=== PATIENT | female | born 1960 | race Caucasian/White ===

== ENCOUNTER 2021-03-23 21:36 | Emergency (ER) | payer BC, MEDICARE ==
[2021-03-23] MEDS ORDERED: Aspirin 81 MG Tab.Chew PO ONE (21:44)
[2021-03-23] MEDS ORDERED: Aspirin 81 MG Tab.Chew ONE (21:45)
[2021-03-23] MEDS ORDERED: Diazepam 5 MG Tab PO ONE (21:45)
[2021-03-23] MEDS ORDERED: Ketorolac 30 MG/ML SDV IVPUSH ONE (21:45)
[2021-03-23] MEDS ORDERED: Sodium Chloride 0.9% 10 ML Syringe FLUSH PRN (21:45)
--- NOTE | 2021-03-23 21:52 | EDM.PDOC ---
ED HPI GENERAL MEDICAL PROBLEM - General Chief Complaint: Chest Pain Stated Complaint: CHEST PAIN Time Seen by Provider: 03/23/21 21:39 Source of Information: Reports: Patient, EMS - History of Present Illness INITIAL COMMENTS - FREE TEXT/NARRATIVE: Kira is a 60 y/o female who is brought to the ER by EMS with midsternal chest pain that she reports started after she took a bath tonight. She rates the pain 10/10 and radiating to the back "all over". She does seem to have more pain with movement and palpation. Denies any previous cardiac hx. Has not taken any meds for pain. Does report getting dizzy and nauseated with the pain. CHEST Pain Score (Numeric/FACES): 10 - Related Data Allergies Allergy/AdvReac Type Severity Reaction Status Date / Time cefpodoxime [From Vantin] Allergy Other Verified 03/23/21 22:08 Home Meds: Home Meds . [No Known Home Meds] 03/23/21 [History] Review of Systems - Review of Systems Review Of Systems: See Below Constitutional: Reports: No Symptoms Eyes: Reports: No Symptoms Ears: Reports: No Symptoms Nose: Reports: No Symptoms Mouth/Throat: Reports: No Symptoms Respiratory: Reports: No Symptoms Cardiovascular: Reports: Chest Pain GI/Abdominal: Reports: Nausea Genitourinary: Reports: No Symptoms Musculoskeletal: Reports: Back Pain Skin: Reports: No Symptoms Neurological: Reports: Dizziness Psychiatric: Reports: No Symptoms ED EXAM, GENERAL - Physical Exam Exam: See Below General Appearance: Alert, WD/WN, Other (Adult female, appears to be uncomfortable and in pain with any movment) Ears: Hearing Grossly Normal Nose: Normal Inspection Throat/Mouth: Normal Inspection, Normal Voice Head: Atraumatic, Normocephalic Neck: Normal Inspection Respiratory/Chest: No Respiratory Distress, Lungs Clear, Other (+tender with palpation) Cardiovascular: Normal Peripheral Pulses, Regular Rate, Rhythm, No Murmur GI/Abdominal: Normal Bowel Sounds, Soft, Non-Tender (Female) Exam: Deferred Rectal (Female) Exam: Deferred Extremities: Normal Inspection, No Pedal Edema, Normal Capillary Refill Neurological: Alert, Oriented, CN II-XII Intact Psychiatric: Flat Affect Skin Exam: Warm, Dry, Intact, Normal Color Lymphatic: No Adenopathy #1 Interpretation EKG Date: 03/23/21 Time: 21:39 Rhythm: NSR Rate (Beats/Min): 70 [place]: Normal P-Wave: Present QRS: Normal ST-T: Normal QT: Normal EKG Interpretation Comments: NSR Course - Vital Signs Text/Narrative:: The patient was seen by the MACHINIST OUTSIDE. Labs and EKG ordered. She was given ASA 324mg po since she is r/o ACS, but also given Toradol 30mg IVP and Valium 10mg po for the muscle spasms/pain. 2250 Resting now, feeling a bit better. Labs reviewed. Note WBC=13.9, Neuts=97.7%; CMP K=3.4, Qgiqjux=492 Total Bili=2.5, BTF=925, GOT=945; Tr oponin=0.00; UA SG=>=1.030, Ketones >=160, Bili=moderate. Abdominal exam negative, but will order CT Abd/Pelvis W to rule out causes of elevated LFTs and elevated WBC, cannot exclude Gallbladder Disease; LR 1 liter ordered. Pain better at this time. [address] as machine went down. Discussed option of transferring to [facility] or returning in the AM for a Gallbladder US. Patie nt reports pain better at this time, but does not want to go to [facility]. Will send home with pain meds and antiemetics for now. Suspect gallbladder disease but need imaging. Advised to return immediately to ER if unable to tolerate pain. Reviewed plan with patient and her son. GB US ordered for AM. Patient was given discharge instructions and left the ER in stable condition. Last Recorded V/S: Last Vital Signs Temp 36.3 C 03/23/21 21:40 Pulse 69 03/23/21 21:58 Resp 20 03/23/21 21:58 BP 129/67 03/23/21 21:58 Pulse Ox 95 03/23/21 21:58 - Orders/Labs/Meds Orders: Active Orders 24 hr Category Date Time Status EKG Documentation Completion [RC] STAT Care 03/23/21 21:45 Active Abdomen Pelvis w Cont [CT] Stat Exams 03/24/21 00:18 Ordered Sodium Chloride 0.9% [Saline Flush] Med 03/23/21 21:45 Active 10 ml FLUSH ASDIRECTED PRN Saline Lock Insert [OM.PC] Stat Oth 03/23/21 21:45 Ordered Medication Orders Sodium Chloride (Sodium Chloride 0.9% 10 Ml Syringe) 10 ml FLUSH ASDIRECTED PRN PRN Reason: Keep Vein Open Last Admin: 03/23/21 21:50 Dose: 10 ml Documented by: NICKO Labs: Laboratory Tests 03/23/21 03/23/21 03/23/21 Range/Units 21:55 21:55 21:55 WBC 13.9 H (4.0-10.2) K/uL RBC 5.36 H (3.77-5.09) M/uL Hgb 13.8 (11.7-15.5) g/dL Hct 43.6 (34.0-46.0) % MCV 81.3 L (84.0-98.0) fL MCH 25.7 L (28.2-33.3) pg MCHC 31.7 (31.7-36.0) g/dL RDW 14.9 H (11.2-14.1) % Plt Count 277 (150-350) K/uL Neut % (Auto) 97.7 H (45.0-80.0) % Lymph % (Auto) 1.7 L (10.0-50.0) % [place] % (Auto) 0.4 L (2.0-14.0) % Eos % (Auto) 0.1 (0.0-5.0) % Baso % (Auto) 0.1 (0.0-2.0) % Neut # (Auto) 13.62 H (1.40-7.00) K/uL Lymph # (Auto) 0.23 L (0.50-3.50) K/uL [place] # (Auto) 0.06 (0.00-1.00) K/uL Eos # (Auto) 0.01 (0.00-0.50) K/uL Baso # (Auto) 0.01 (0.00-0.20) K/uL Sodium 142 (136-145) mmol/L Potassium 3.4 L (3.5-5.1) mmol/L Chloride 104 (98-107) mmol/L Carbon Dioxide 23.2 (21.0-32.0) mmol/L BUN 19 H (7-18) mg/dL Creatinine 0.75 (0.51-1.17) mg/dL Est Cr Clr Drug Dosing 79.51 mL/min Estimated GFR (MDRD) > 60 mL/min Glucose 191 H (70-99) mg/dL Calcium 8.4 L (8.5-10.1) mg/dL Total Bilirubin 2.5 H (0.2-1.0) mg/dL AST 168 H (15-37) U/L ALT 109 H (12-78) U/L Alkaline Phosphatase 157 H (46-116) IU/L Troponin I 0.000 (0.000-0.056) ng/mL C-Reactive Protein 1.5 H (<=0.9) mg/dL Total Protein 7.9 (6.4-8.2) g/dL Albumin 3.7 (3.4-5.0) g/dL Specimen Type Urine Color Urine Appearance Urine pH (5.0-9.0) Ur Specific [place] (1.005-1.030) Urine Protein (NEGATIVE) mg/dL Urine Glucose (UA) (NEGATIVE) mg/dL Urine Ketones (NEGATIVE) mg/dL Urine Occult Blood (NEGATIVE) Urine Nitrite (NEGATIVE) Urine Bilirubin (NEGATIVE) Urine Urobilinogen (0.2-1.0) E.U./dL Ur Leukocyte Esterase (NEGATIVE) Urine RBC Urine WBC Urinalysis Comment 03/23/21 Range/Units 22:19 WBC (4.0-10.2) K/uL RBC (3.77-5.09) M/uL Hgb (11.7-15.5) g/dL Hct (34.0-46.0) % MCV (84.0-98.0) fL MCH (28.2-33.3) pg MCHC (31.7-36.0) g/dL RDW (11.2-14.1) % Plt Count (150-350) K/uL Neut % (Auto) (45.0-80.0) % Lymph % (Auto) (10.0-50.0) % [place] % (Auto) (2.0-14.0) % Eos % (Auto) (0.0-5.0) % Baso % (Auto) (0.0-2.0) % Neut # (Auto) (1.40-7.00) K/uL Lymph # (Auto) (0.50-3.50) K/uL [place] # (Auto) (0.00-1.00) K/uL Eos # (Auto) (0.00-0.50) K/uL Baso # (Auto) (0.00-0.20) K/uL Sodium (136-145) mmol/L Potassium (3.5-5.1) mmol/L Chloride (98-107) mmol/L Carbon Dioxide (21.0-32.0) mmol/L BUN (7-18) mg/dL Creatinine (0.51-1.17) mg/dL Est Cr Clr Drug Dosing mL/min Estimated GFR (MDRD) mL/min Glucose (70-99) mg/dL Calcium (8.5-10.1) mg/dL Total Bilirubin (0.2-1.0) mg/dL AST (15-37) U/L ALT (12-78) U/L Alkaline Phosphatase (46-116) IU/L Troponin I (0.000-0.056) ng/mL C-Reactive Protein (<=0.9) mg/dL Total Protein (6.4-8.2) g/dL Albumin (3.4-5.0) g/dL Specimen Type Urincc Urine Color Dark yellow Urine Appearance Slightly cloudy Urine pH 5.5 (5.0-9.0) Ur Specific [place] >= 1.030 (1.005-1.030) Urine Protein 30 H (NEGATIVE) mg/dL Urine Glucose (UA) Negative (NEGATIVE) mg/dL Urine Ketones >=160 H (NEGATIVE) mg/dL Urine Occult Blood Negative (NEGATIVE) Urine Nitrite Negative (NEGATIVE) Urine Bilirubin Moderate H (NEGATIVE) Urine Urobilinogen >=8.0 H (0.2-1.0) E.U./dL Ur Leukocyte Esterase Negative (NEGATIVE) Urine RBC Not Reportable Urine WBC Not Reportable Urinalysis Comment See note Meds: Medications Generic Name Dose Route Start Last Admin Trade Name Freq PRN Reason Stop Dose Admin Sodium Chloride 10 ml 03/23/21 21:45 03/23/21 21:50 Sodium Chloride 0.9% 10 Ml Syringe FLUSH 10 ml ASDIRECTED PRN Administration Keep Vein Open Discontinued Medications Generic Name Dose Route Start Last Admin Trade Name Freq PRN Reason Stop Dose Admin Aspirin 324 mg 03/23/21 21:44 03/23/21 21:45 Aspirin 81 Mg Tab.Chew PO 03/23/21 21:45 324 mg ONETIME ONE Administration Aspirin Confirm 03/23/21 21:45 03/23/21 21:45 Aspirin 81 Mg Tab.Chew Administered 03/23/21 21:46 Not Given Dose 324 mg .ROUTE .STK-MED ONE Diazepam 10 mg 03/23/21 21:45 03/23/21 21:48 Diazepam 5 Mg Tab PO 03/23/21 21:46 10 mg ONETIME ONE Administration Lactated Ringer's 1,000 mls @ 999 mls/hr 03/23/21 22:51 03/23/21 22:54 Ringers, Lactated IV 03/23/21 23:51 999 mls/hr .BOLUS ONE Administration Iopamidol 100 ml 03/23/21 23:08 Iopamidol 612 Mg/Ml 100 Ml Bottle IVPUSH 03/23/21 23:09 ONETIME STA Ketorolac Tromethamine 30 mg 03/23/21 21:45 03/23/21 21:48 Ketorolac 30 Mg/Ml Sdv IVPUSH 03/23/21 21:46 30 mg ONETIME ONE Administration Departure - Departure Time of Disposition: 00:31 Disposition: Home, Self-Care 01 Condition: Good Clinical Impression: Epigastric pain, Elevated LFTs Elevated white blood cell count Qualifiers: Leukocytosis type: other Qualified Code(s): D72.828 - Other elevated white blood cell count - Discharge Information *PRESCRIPTION DRUG MONITORING PROGRAM REVIEWED*: No *COPY OF PRESCRIPTION DRUG MONITORING REPORT IN PATIENT LIOR: No Instructions: Abdominal Pain, Adult, [id number] Referrals: PCP,None [Primary Care Provider] - Forms: ED Department Discharge Sepsis Event Note (ED) - Evaluation Sepsis Screening Result: No Definite Risk - Focused Exam Vital Signs: Vital Signs Temp Pulse Resp BP Pulse Ox 03/23/21 21:58 69 20 129/67 95 03/23/21 21:40 36.3 C 72 16 133/73 95 03/23/21 21:36 20 - My Orders Last 24 Hours: My Active Orders 03/23/21 21:45 EKG Documentation Completion [RC] STAT Sodium Chloride 0.9% [Saline Flush] 10 ml FLUSH ASDIRECTED PRN Saline Lock Insert [OM.PC] Stat 03/24/21 00:18 Abdomen Pelvis w Cont [CT] Stat - Assessment/Plan Last 24 Hours: My Active Orders 03/23/21 21:45 EKG Documentation Completion [RC] STAT Sodium Chloride 0.9% [Saline Flush] 10 ml FLUSH ASDIRECTED PRN Saline Lock Insert [OM.PC] Stat 03/24/21 00:18 Abdomen Pelvis w Cont [CT] Stat Assessment:: 1)Epigastric Pain 2)Elevated WBC 3)Elevated LFTs Plan: -Tramadol 50mg 1-2 tablets every 8 hours as needed for pain #10(ER) -Promethazine 25mg oral every 6 hours as needed for nausea/relaxation #10 (ER) -You may have small amounts of liquids, but no food. Do not eat until after the ultrasound. -Ultrasound of your gallbladder ordered for tomorrow. They will call you in the AM with a time. -If your symptoms are worse, return immediately to the ER.
[2021-03-23 22:20] LABS: CHLORIDE,CL 104 mmol/L (98-107); SODIUM,NA 142 mmol/L (136-145)
[2021-03-23] MEDS ORDERED: Lactated Ringers 1,000 ML IV ONE (22:51)
[2021-03-23] MEDS ORDERED: Iopamidol 612 MG/ML 100 ML Bottle IVPUSH STA (23:08)
== END 2021-03-24 00:50 | disposition home or self-care (01) ==
LOC: LL.ED 21:36
DX: R10.13 Epigastric pain (principal); D72.828 Other elevated white blood cell count; R79.89 Other specified abnormal findings of blood chemistry; Z88.1 Allergy status to other antibiotic agents
CPT/HCPCS: 36415; 80053; 81001; 81003; 84484; 85025; 86140; 93010; 96374; 99284; 99285-25; A9270-GY; J1885; J7120

== ENCOUNTER 2021-04-08 20:33 | Emergency (ER) | payer MEDICARE ==
[2021-04-08] MEDS ORDERED: Aspirin 81 MG Tab.Chew PO ONE (21:01)
[2021-04-08] MEDS ORDERED: Nitroglycerin 0.4 MG Tab.SL SL ONE (21:11)
--- NOTE | 2021-04-08 21:13 | PCM.EKG ---
#1 Interpretation EKG Date: 04/08/21 Time: 21:09 Rhythm: NSR Rate (Beats/Min): 74 [place]: Normal P-Wave: Present QRS: Normal ST-T: Normal QT: Normal Comparison: No Change
--- NOTE | 2021-04-08 21:19 | EDM.PDOC ---
ED HPI GENERAL MEDICAL PROBLEM - General Chief Complaint: General Stated Complaint: Chest pain abd pain Time Seen by Provider: 04/08/21 21:01 Source of Information: Reports: Patient History Limitations: Reports: No Limitations - History of Present Illness INITIAL COMMENTS - FREE TEXT/NARRATIVE: Patient comes emergency department today from home with complaints of abdominal pain and chest pain. This patient since about 5 PM tonight has had constant midsternal pressure on her chest. She is short of breath. Her pressure does not get worse or better with movement cough. She also complains of right upper quadrant abdominal pain nausea without vomiting. His pain in her sternum goes into her back. No weakness dizziness lightheadedness. No syncope. No fever or chills. No hematuria dysuria urinary frequency. No black or tarry stools. Treatments DOCTOR OF DENTAL SURGERY: Reports: Other Medication(s) Back Pain Score (Numeric/FACES): 6 - Related Data Allergies Allergy/AdvReac Type Severity Reaction Status Date / Time cefpodoxime [From Vantin] Allergy Other Verified 04/08/21 20:36 Home Meds: Home Meds . [No Known Home Meds] 03/23/21 [History] Social & Family History - Tobacco Use Tobacco Use Status *Q: Never Tobacco User Second Hand Smoke Exposure: No - Caffeine Use Caffeine Use: Reports: Coffee, Soda - Recreational Drug Use Recreational Drug Use: No ED ROS GENERAL - Review of Systems Review Of Systems: Comprehensive ROS is negative, except as noted in HPI. ED EXAM, GENERAL - Physical Exam Exam: See Below Exam Limited By: No Limitations General Appearance: Alert, WD/WN, Mild Distress Eye Exam: Bilateral Eye: EOMI, PERRL Ears: Normal External Exam Nose: Normal Inspection Throat/Mouth: Normal Inspection Head: Atraumatic, Normocephalic Neck: Normal Inspection, Supple, Non-Tender Respiratory/Chest: No Respiratory Distress, Lungs Clear, Normal Breath Sounds, No Accessory Muscle Use, Chest Non-Tender Cardiovascular: Normal Peripheral Pulses, Regular Rate, Rhythm, No Murmur Peripheral Pulses: 2+: Radial (L), Radial (R), Posterior Tibial (L), Posterior Tibial (R), Dorsalis Pedis (L), Dorsalis Pedis (R) GI/Abdominal: Normal Bowel Sounds, Soft, No Distention, Tender (Right upper quadrant positive Negron sign.). No: Guarding, Rigid, Rebound (Female) Exam: Deferred Rectal (Female) Exam: Deferred Back Exam: Normal Inspection, Full Range of Motion Extremities: Normal Inspection, Normal Range of Motion, Normal Capillary Refill Neurological: Alert, Oriented, CN II-XII Intact, No Motor/Sensory Deficits Psychiatric: Flat Affect Skin Exam: Intact, No Rash, Cool, Diaphoretic, Pallor Course - Vital Signs Last Recorded V/S: Last Vital Signs Temp 97.5 F 04/09/21 00:15 Pulse 89 04/08/21 22:28 Resp 14 04/09/21 00:55 BP 144/75 H 04/09/21 00:55 Pulse Ox 97 04/09/21 00:55 - Orders/Labs/Meds Orders: Active Orders 24 hr Category Date Time Status Abdomen Pelvis w Cont [CT] Stat Exams 04/08/21 21:49 Taken Chest 1V Frontal [CR] Stat Exams 04/08/21 21:00 Taken CULTURE BLOOD [BC] Stat Lab 04/08/21 22:21 Received CULTURE BLOOD [BC] Stat Lab 04/08/21 22:28 Received CULTURE URINE [RM] Stat Lab 04/08/21 23:00 Results Blood Culture x2 Reflex Set [OM.PC] Stat Oth 04/08/21 22:11 Ordered Peripheral IV Insertion Adult [OM.PC] Stat Oth 04/08/21 21:00 Ordered Labs: Laboratory Tests 04/08/21 04/08/21 04/08/21 Range/Units 21:16 21:16 21:16 WBC 16.2 H (4.0-10.2) K/uL RBC 4.98 (3.77-5.09) M/uL Hgb 12.7 (11.7-15.5) g/dL Hct 41.2 (34.0-46.0) % MCV 82.7 L (84.0-98.0) fL MCH 25.5 L (28.2-33.3) pg MCHC 30.8 L (31.7-36.0) g/dL RDW 15.8 H (11.2-14.1) % Plt Count 370 H D (150-350) K/uL Neut % (Auto) 94.3 H (45.0-80.0) % Lymph % (Auto) 2.7 L (10.0-50.0) % [place] % (Auto) 2.7 (2.0-14.0) % Eos % (Auto) 0.1 (0.0-5.0) % Baso % (Auto) 0.2 (0.0-2.0) % Neut # (Auto) 15.29 H (1.40-7.00) K/uL Lymph # (Auto) 0.44 L (0.50-3.50) K/uL [place] # (Auto) 0.43 (0.00-1.00) K/uL Eos # (Auto) 0.01 (0.00-0.50) K/uL Baso # (Auto) 0.03 (0.00-0.20) K/uL Sodium 141 (136-145) mmol/L Potassium 4.1 (3.5-5.1) mmol/L Chloride 105 (98-107) mmol/L Carbon Dioxide 22.8 (21.0-32.0) mmol/L BUN 16 (7-18) mg/dL Creatinine 0.74 (0.51-1.17) mg/dL Est Cr Clr Drug Dosing 80.58 mL/min Estimated GFR (MDRD) > 60 mL/min Glucose 136 H (70-99) mg/dL Lactic Acid 1.0 (0.4-2.0) mmol/L Calcium 9.0 (8.5-10.1) mg/dL Total Bilirubin 2.2 H (0.2-1.0) mg/dL AST 116 H (15-37) U/L ALT 75 (12-78) U/L Alkaline Phosphatase 262 H (46-116) IU/L Ammonia (11-32) umol/L Lactate Dehydrogenase (81-234) U/L Troponin I 0.000 (0.000-0.056) ng/mL C-Reactive Protein 1.7 H (<=0.9) mg/dL Total Protein 8.1 (6.4-8.2) g/dL Albumin 3.3 L (3.4-5.0) g/dL Lipase > 1500 H (73-393) U/L Specimen Type Urine Color Urine Appearance Urine pH (5.0-9.0) Ur Specific [place] (1.005-1.030) Urine Protein (NEGATIVE) mg/dL Urine Glucose (UA) (NEGATIVE) mg/dL Urine Ketones (NEGATIVE) mg/dL Urine Occult Blood (NEGATIVE) Urine Nitrite (NEGATIVE) Urine Bilirubin (NEGATIVE) Urine Urobilinogen (0.2-1.0) E.U./dL Ur Leukocyte Esterase (NEGATIVE) Urine RBC /HPF Urine WBC /HPF Ur Epithelial Cells /LPF Amorphous Sediment (0/HPF) /HPF Urine Bacteria (NONE TO FEW) /HPF Urine Mucus (NEGATIVE) /LPF SARS-CoV-2 Ag (Rapid) (NEGATIVE) 04/08/21 04/08/21 04/08/21 Range/Units 21:16 21:16 23:00 WBC (4.0-10.2) K/uL RBC (3.77-5.09) M/uL Hgb (11.7-15.5) g/dL Hct (34.0-46.0) % MCV (84.0-98.0) fL MCH (28.2-33.3) pg MCHC (31.7-36.0) g/dL RDW (11.2-14.1) % Plt Count (150-350) K/uL Neut % (Auto) (45.0-80.0) % Lymph % (Auto) (10.0-50.0) % [place] % (Auto) (2.0-14.0) % Eos % (Auto) (0.0-5.0) % Baso % (Auto) (0.0-2.0) % Neut # (Auto) (1.40-7.00) K/uL Lymph # (Auto) (0.50-3.50) K/uL [place] # (Auto) (0.00-1.00) K/uL Eos # (Auto) (0.00-0.50) K/uL Baso # (Auto) (0.00-0.20) K/uL Sodium (136-145) mmol/L Potassium (3.5-5.1) mmol/L Chloride (98-107) mmol/L Carbon Dioxide (21.0-32.0) mmol/L BUN (7-18) mg/dL Creatinine (0.51-1.17) mg/dL Est Cr Clr Drug Dosing mL/min Estimated GFR (MDRD) mL/min Glucose (70-99) mg/dL Lactic Acid (0.4-2.0) mmol/L Calcium (8.5-10.1) mg/dL Total Bilirubin (0.2-1.0) mg/dL AST (15-37) U/L ALT (12-78) U/L Alkaline Phosphatase (46-116) IU/L Ammonia < 10 L (11-32) umol/L Lactate Dehydrogenase 339 H (81-234) U/L Troponin I (0.000-0.056) ng/mL C-Reactive Protein (<=0.9) mg/dL Total Protein (6.4-8.2) g/dL Albumin (3.4-5.0) g/dL Lipase (73-393) U/L Specimen Type Urinvoid Urine Color Dark yellow Urine Appearance Cloudy Urine pH 5.5 (5.0-9.0) Ur Specific [place] >= 1.030 (1.005-1.030) Urine Protein 100 H (NEGATIVE) mg/dL Urine Glucose (UA) 100 H (NEGATIVE) mg/dL Urine Ketones 40 H (NEGATIVE) mg/dL Urine Occult Blood Negative (NEGATIVE) Urine Nitrite Negative (NEGATIVE) Urine Bilirubin Large H (NEGATIVE) Urine Urobilinogen 4.0 H (0.2-1.0) E.U./dL Ur Leukocyte Esterase Trace H (NEGATIVE) Urine RBC 0-5 /HPF Urine WBC 10-20 H /HPF Ur Epithelial Cells Few /LPF Amorphous Sediment Moderate H (0/HPF) /HPF Urine Bacteria Moderate H (NONE TO FEW) /HPF Urine Mucus Moderate H (NEGATIVE) /LPF SARS-CoV-2 Ag (Rapid) (NEGATIVE) 04/09/21 Range/Units 00:05 WBC (4.0-10.2) K/uL RBC (3.77-5.09) M/uL Hgb (11.7-15.5) g/dL Hct (34.0-46.0) % MCV (84.0-98.0) fL MCH (28.2-33.3) pg MCHC (31.7-36.0) g/dL RDW (11.2-14.1) % Plt Count (150-350) K/uL Neut % (Auto) (45.0-80.0) % Lymph % (Auto) (10.0-50.0) % [place] % (Auto) (2.0-14.0) % Eos % (Auto) (0.0-5.0) % Baso % (Auto) (0.0-2.0) % Neut # (Auto) (1.40-7.00) K/uL Lymph # (Auto) (0.50-3.50) K/uL [place] # (Auto) (0.00-1.00) K/uL Eos # (Auto) (0.00-0.50) K/uL Baso # (Auto) (0.00-0.20) K/uL Sodium (136-145) mmol/L Potassium (3.5-5.1) mmol/L Chloride (98-107) mmol/L Carbon Dioxide (21.0-32.0) mmol/L BUN (7-18) mg/dL Creatinine (0.51-1.17) mg/dL Est Cr Clr Drug Dosing mL/min Estimated GFR (MDRD) mL/min Glucose (70-99) mg/dL Lactic Acid (0.4-2.0) mmol/L Calcium (8.5-10.1) mg/dL Total Bilirubin (0.2-1.0) mg/dL AST (15-37) U/L ALT (12-78) U/L Alkaline Phosphatase (46-116) IU/L Ammonia (11-32) umol/L Lactate Dehydrogenase (81-234) U/L Troponin I (0.000-0.056) ng/mL C-Reactive Protein (<=0.9) mg/dL Total Protein (6.4-8.2) g/dL Albumin (3.4-5.0) g/dL Lipase (73-393) U/L Specimen Type Urine Color Urine Appearance Urine pH (5.0-9.0) Ur Specific [place] (1.005-1.030) Urine Protein (NEGATIVE) mg/dL Urine Glucose (UA) (NEGATIVE) mg/dL Urine Ketones (NEGATIVE) mg/dL Urine Occult Blood (NEGATIVE) Urine Nitrite (NEGATIVE) Urine Bilirubin (NEGATIVE) Urine Urobilinogen (0.2-1.0) E.U./dL Ur Leukocyte Esterase (NEGATIVE) Urine RBC /HPF Urine WBC /HPF Ur Epithelial Cells /LPF Amorphous Sediment (0/HPF) /HPF Urine Bacteria (NONE TO FEW) /HPF Urine Mucus (NEGATIVE) /LPF SARS-CoV-2 Ag (Rapid) Negative (NEGATIVE) Meds: Medications Discontinued Medications Generic Name Dose Route Start Last Admin Trade Name Antonio PRN Reason Stop Dose Admin Aspirin 324 mg 04/08/21 21:01 04/08/21 21:11 Aspirin 81 Mg Tab.Chew PO 04/08/21 21:02 324 mg ONETIME ONE Administration Diphenhydramine HCl 25 mg 04/08/21 21:25 04/08/21 21:33 Diphenhydramine 50 Mg/Ml Sdv IVPUSH 04/08/21 21:26 25 mg ONETIME ONE Administration Hydromorphone HCl 0.5 mg 04/08/21 21:25 04/08/21 21:33 Hydromorphone 0.5 Mg/0.5 Ml Syringe IV 04/08/21 21:26 0.5 mg ONETIME ONE Administration Hydromorphone HCl 0.5 mg 04/08/21 22:03 04/08/21 22:07 Hydromorphone 0.5 Mg/0.5 Ml Syringe IV 04/08/21 22:04 0.5 mg ONETIME ONE Administration Hydromorphone HCl 0.5 mg 04/09/21 00:08 04/09/21 00:15 Hydromorphone 0.5 Mg/0.5 Ml Syringe IV 04/09/21 00:09 0.5 mg ONETIME ONE Administration Lactated Ringer's 1,000 mls @ 1,000 mls/hr 04/08/21 21:25 04/08/21 21:36 Ringers, Lactated IV 04/08/21 22:24 1,000 mls/hr .BOLUS ONE Administration Lactated Ringer's 1,000 mls @ 500 mls/hr 04/08/21 22:15 04/08/21 22:34 Ringers, Lactated IV 500 mls/hr ASDIRECTED LARA Administration Iopamidol 100 ml 04/08/21 22:28 04/08/21 22:55 Iopamidol 612 Mg/Ml 100 Ml Bottle IVPUSH 04/08/21 22:29 100 ml ONETIME ONE Administration Nitroglycerin 0.4 mg 04/08/21 21:11 04/08/21 21:13 Nitroglycerin 0.4 Mg Tab.Sl SL 04/08/21 21:12 0.4 mg ONETIME ONE Administration Ondansetron HCl 4 mg 04/08/21 21:25 04/08/21 21:33 Ondansetron 4 Mg/2 Ml Sdv IV 04/08/21 21:26 4 mg ONETIME ONE Administration Sodium Chloride 10 ml 04/08/21 21:01 04/08/21 22:09 Sodium Chloride 0.9% 10 Ml Syringe FLUSH 10 ml ASDIRECTED PRN Administration Keep Vein Open - Radiology Interpretation Free Text/Narrative:: Chest x-ray per radiology shows no evidence of pneumothorax. No bony abnormality. Left hemidiaphragm is indistinct suggesting left basilar atelectasis or infiltrate. The lungs are otherwise clear. - Re-Assessments/Exams Free Text/Narrative Re-Assessment/Exam: 04/08/21 21:17 IV was established labs are drawn. EKG when reviewed extemporaneously by myself without any ST elevation or depression unchanged from previous ER visit just last month. Aspirin 324 orally. Nitro 1 tablet sublingually. It was noted that the patient was seen at 03-23-21 in the emergency department for similar symptoms that she relates today. She had elevated liver enzymes as well as T bili. She had an ultrasound completed on 03-24-21 there is an echo genic shadowing mass in the gallbladder most likely related to cholelithiasis. No obvious wall thickening or clear evidence of acute cholecystitis. Had a positive sonographic Negron sign. Recommend HIDA scan. Diffuse fatty infiltration of the liver common bile duct at the pancreatic bed measures up to a centimeter in diameter which is upper normal limits. No obvious intrahepatic biliary ductal dilation. 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 The nitroglycerin did not make any change in the patient's chest pain. Shortly after the nitroglycerin she started to become more nauseated and vomiting. She received Benadryl 25 mg IV push, Zofran 4 mg IV push as well as Dilaudid 0.5 mg. 1 L of LR wide open. Laboratory evaluation with a WBC of 16.2, hemoglobin 12.7 platelet 370. CMP with a mild elevated T bili 2.2, AST 116 ALT 75 alkaline phosphatase 262 these are all better numbers for her liver enzymes than when she was seen in the emergency department just about a month ago. Ammonia is less than 10. Troponin is negative. C-reactive protein 1.7. The most concerning is her lipase of 1500 The patient still is quite ill appearing. Her blood pressure is stable. Her lactic acid is negative. She is still quite pale diaphoretic and ill-appearing. Second liter of LR at [address] abdomen pelvis per radiology shows a mass in the gallbladder and evidence of internal color flow on comparison ultrasound. These findings are highly suspicious for adenocarcinoma she has several small low-density lesions within the liver metastatic disease cannot be excluded bile duct dilation and distended gallbladder with apparent obstructing calculi in the distal common bile duct no associated pancreatic duct dilation. She was much more comfortable following the dilaudid. I called and spoke with Dr. Lindsey at [facility] in [place]. HPI ER course findings and concerns were relayed to her verbally over the phone. Her questions were answered and she was comfortable with this plan. No new orders. I discussed the findings and concerns with the patient about the bile duct blocked causing pancreatitis and the concerning mass in her gallbladder. She is understanding her questions are answered and she is comfortable with this plan. Departure - Departure Time of Disposition: 00:01 Disposition: DC/Tfer to Acute Hospital 02 Reason for Transfer *Q: Other Clinical Impression: Gallbladder mass Pancreatitis due to biliary obstruction Qualifiers: Chronicity: acute Acute pancreatitis complication: unspecified Qualified Code(s): K85.10 - Biliary acute pancreatitis without necrosis or infection Referrals: Laurence Mckeon PA [Primary Care Provider] - Forms: ED Department Discharge, Interfacility Transfer [facility] Sepsis Event Note (ED) - Evaluation Sepsis Screening Result: No Definite Risk - Focused Exam Vital Signs: Vital Signs Temp Pulse Resp BP BP BP Pulse Ox 04/09/21 00:55 14 144/75 H 97 04/09/21 00:30 16 151/77 H 96 04/09/21 00:15 97.5 F 17 164/85 H 97 04/08/21 23:25 19 158/82 H 94 L 04/08/21 22:28 89 16 134/64 90 L 04/08/21 22:16 90 16 134/58 L 90 L 04/08/21 21:58 97.2 F 83 16 140/76 94 L 04/08/21 21:45 82 16 121/66 96 04/08/21 21:30 86 16 123/70 96 04/08/21 21:13 158/84 H - My Orders Last 24 Hours: My Active Orders 04/08/21 21:00 Chest 1V Frontal [CR] Stat Peripheral IV Insertion Adult [OM.PC] Stat 04/08/21 21:49 Abdomen Pelvis w Cont [CT] Stat 04/08/21 22:11 Blood Culture x2 Reflex Set [OM.PC] Stat 04/08/21 22:21 CULTURE BLOOD [BC] Stat 04/08/21 22:28 CULTURE BLOOD [BC] Stat 04/08/21 23:00 CULTURE URINE [RM] Stat - Assessment/Plan Last 24 Hours: My Active Orders 04/08/21 21:00 Chest 1V Frontal [CR] Stat Peripheral IV Insertion Adult [OM.PC] Stat 04/08/21 21:49 Abdomen Pelvis w Cont [CT] Stat 04/08/21 22:11 Blood Culture x2 Reflex Set [OM.PC] Stat 04/08/21 22:21 CULTURE BLOOD [BC] Stat 04/08/21 22:28 CULTURE BLOOD [BC] Stat 04/08/21 23:00 CULTURE URINE [RM] Stat
[2021-04-08] MEDS ORDERED: Ondansetron 4 MG/2 ML SDV IV ONE (21:25)
[2021-04-08] MEDS ORDERED: diphenhydrAMINE 50 MG/ML SDV IVPUSH ONE (21:25)
[2021-04-08] MEDS ORDERED: HYDROmorphone 0.5 MG/0.5 ML Syringe IV ONE ×2 (21:25→22:03)
[2021-04-08] MEDS ORDERED: Lactated Ringers 1,000 ML IV ONE (21:25)
[2021-04-08] MEDS: Sodium Chloride 0.9% 10 ML Syringe FLUSH PRN ×2 (21:37→22:09)
[2021-04-08 21:45] LABS: CHLORIDE,CL 105 mmol/L (98-107); SODIUM,NA 141 mmol/L (136-145)
[2021-04-08] MEDS ORDERED: Lactated Ringers 1,000 ML IV SCH (22:15)
[2021-04-08] MEDS ORDERED: Iopamidol 612 MG/ML 100 ML Bottle IVPUSH ONE (22:28)
[2021-04-09] MEDS ORDERED: HYDROmorphone 0.5 MG/0.5 ML Syringe IV ONE (00:08)
== END 2021-04-09 01:15 ==
LOC: LL.ED 20:33
DX: K85.10 Biliary acute pancreatitis without necrosis or infection (principal); R19.00 Intra-abdominal and pelvic swelling, mass and lump, unspecified site; Z20.822 Contact with and (suspected) exposure to COVID-19; Z88.1 Allergy status to other antibiotic agents
CPT/HCPCS: 36415; 71045; 74177; 80053; 81001; 82140; 83605; 83615; 83690; 84484; 85025; 86140; 87040; 87077; 87086; 87186; 87426; 93005; 96374; 96375; 96376; 99285; A9270; J1170; J1200; J2405; J7120; Q9967; 99284

== ENCOUNTER 2021-06-26 17:15 | Emergency (ER) | payer MEDICARE ==
[2021-06-26 18:03] LABS: BUPRENORPHINE SCREEN,URINE NEGATIVE (NEGATIVE)
[2021-06-26 18:05] LABS: BARBITURATE SCREEN,URINE NEGATIVE (NEGATIVE); BENZODIAZEPINES SCREEN,URINE NEGATIVE (NEGATIVE); EDDP,URINE SCREEN NEGATIVE (NEGATIVE); TCA SCREEN,URINE NEGATIVE (NEGATIVE); THC SCREEN,URINE 50 NG/ML NEGATIVE (NEGATIVE)
[2021-06-26 18:23] LABS: ANION GAP 10.9 meq/L (7-15); CHLORIDE,CL 107 mmol/L (98-107); SODIUM,NA 145 mmol/L (136-145)
--- NOTE | 2021-06-26 18:30 | EDM.PDOC ---
<AleshaVance W - Last Filed: 06/26/21 21:04> ED HPI GENERAL MEDICAL PROBLEM - General Chief Complaint: General Stated Complaint: hallucinations Time Seen by Provider: 06/26/21 17:51 Source of Information: Reports: Patient History Limitations: Reports: No Limitations - History of Present Illness INITIAL COMMENTS - FREE TEXT/NARRATIVE: Pt. presents to ER via ambulance. EMS was called to assess a patient that was experiencing some hallucinations after being pulled over by law enforcement. They had attempted to pull her over and she was not stopping. When she did, she was talking to people who were not present in the back of her car. EMS was summoned. She has been alert, oriented and interactive since she has arrived in ER, but was talking to people who were not present in the back of her car. Pt. states that she thinks she is over-tired. She also complains of urinary frequency and burning. She states that she is chilled, but this is a common problem for her. Pt. denies any chest pain, shortness of breath, nausea, vomiting, lightheadedness, or dizziness. Denies any street drug or prescription drug abuse. Denies any alcohol consumption. She denies any recent trauma. No vision loss or change. She states that she does not have a PCP and is not currently on any prescription medications. She denies any previous mental health diagnoses or treatment. On arrival to ER, pt. was unsure and upset why she needed to come to ER and offers no complaints. Pt. daughter, Ethel, states that patient has been having problems with hallucinations since March. She had her gallbladder removed in March but was having problems with hallucinations prior to that. Denies any recurrent abdominal discomfort. Her son Yusef affirms this. Pt. ran out of gas last weekend and family is very concerned about her long-term ability to care for herself. She has been taking to people who are not there, thinking that she has talked to family that she has not. Pt. is resistive to discussing her symptoms, but affirms that she can see beings in the ER that are not there. Onset: Today Location: Reports: Generalized - Related Data Allergies Allergy/AdvReac Type Severity Reaction Status Date / Time cefpodoxime [From Vantin] Allergy Other Verified 06/26/21 19:14 Home Meds: Home Meds Aspirin [Aspirin EC] 81 mg PO DAILY 06/26/21 [History] Social & Family History - Caffeine Use Caffeine Use: Reports: Coffee, Soda ED ROS GENERAL - Review of Systems Review Of Systems: See Below Constitutional: Reports: Chills (states is always cold, wears sweatshirt today. No rigors.) HEENT: Reports: No Symptoms Respiratory: Reports: No Symptoms Cardiovascular: Reports: No Symptoms Endocrine: Reports: No Symptoms GI/Abdominal: Reports: No Symptoms : Reports: Dysuria, Frequency Musculoskeletal: Reports: No Symptoms Skin: Reports: No Symptoms Neurological: Reports: No Symptoms Psychiatric: Reports: No Symptoms Hematologic/Lymphatic: Reports: No Symptoms Immunologic: Reports: No Symptoms ED EXAM, GENERAL - Physical Exam Exam: See Below Exam Limited By: No Limitations General Appearance: Alert, WD/WN, No Apparent Distress, Thin, Other (Unkempt. Hair on back of head is matted.) Eye Exam: Bilateral Eye: EOMI, PERRL Head: Atraumatic, Normocephalic Neck: Normal Inspection, Supple, Non-Tender, Full Range of Motion Respiratory/Chest: No Respiratory Distress, Lungs Clear, Normal Breath Sounds, No Accessory Muscle Use, Chest Non-Tender Cardiovascular: Normal Peripheral Pulses, Regular Rate, Rhythm, No Edema, No JVD, No Murmur Peripheral Pulses: 4+: Radial (L) GI/Abdominal: Soft, Non-Tender, No Distention, No Mass (Female) Exam: Deferred Rectal (Female) Exam: Deferred Back Exam: Normal Inspection, Full Range of Motion Extremities: Normal Inspection, Normal Range of Motion, Non-Tender, No Pedal Edema, Normal Capillary Refill Neurological: Alert, Oriented, CN II-XII Intact, Normal Gait, No Motor/Sensory Deficits Departure - Departure Disposition: DC/Tfer to Other 70 Clinical Impression: Hallucinations - Discharge Information Referrals: PCP,None [Primary Care Provider] - Forms: ED Department Discharge Care Plan Goals: Transfer to [facility]. Sepsis Event Note (ED) - Evaluation Sepsis Screening Result: No Definite Risk <Balbir Marc - Last Filed: 06/26/21 23:00> ED ROS GENERAL - Review of Systems Review Of Systems: See Below ED EXAM, GENERAL - Physical Exam Exam: See Below Course - Vital Signs Last Recorded V/S: Last Vital Signs Temp 36.4 C 06/26/21 17:51 Pulse 92 06/26/21 17:51 Resp 18 06/26/21 17:51 BP 179/119 H 06/26/21 19:14 Pulse Ox 99 06/26/21 17:51 - Orders/Labs/Meds Orders: Active Orders 24 hr Category Date Time Status Head wo Cont [CT] Stat Exams 06/26/21 17:35 Taken Labs: Laboratory Tests 06/26/21 06/26/21 06/26/21 Range/Units 17:36 17:36 17:40 WBC 5.7 (4.0-10.2) K/uL RBC 5.24 H (3.77-5.09) M/uL Hgb 13.5 (11.7-15.5) g/dL Hct 43.2 (34.0-46.0) % MCV 82.4 L (84.0-98.0) fL MCH 25.8 L (28.2-33.3) pg MCHC 31.3 L (31.7-36.0) g/dL RDW 15.4 H (11.2-14.1) % Plt Count 276 D (150-350) K/uL Neut % (Auto) 72.4 (45.0-80.0) % Lymph % (Auto) 19.1 (10.0-50.0) % [place] % (Auto) 6.7 (2.0-14.0) % Eos % (Auto) 1.1 (0.0-5.0) % Baso % (Auto) 0.7 (0.0-2.0) % Neut # (Auto) 4.09 (1.40-7.00) K/uL Lymph # (Auto) 1.08 (0.50-3.50) K/uL [place] # (Auto) 0.38 (0.00-1.00) K/uL Eos # (Auto) 0.06 (0.00-0.50) K/uL Baso # (Auto) 0.04 (0.00-0.20) K/uL PT (9.5-12.0) SEC INR APTT (24.5-32.8) SEC Sodium (136-145) mmol/L Potassium (3.5-5.1) mmol/L Chloride (98-107) mmol/L Carbon Dioxide (21.0-32.0) mmol/L Anion Gap (7-15) meq/L BUN (7-18) mg/dL Creatinine (0.51-1.17) mg/dL Est Cr Clr Drug Dosing Estimated GFR (MDRD) mL/min Glucose (70-99) mg/dL Calcium (8.5-10.1) mg/dL Phosphorus (2.6-4.7) mg/dL Magnesium (1.8-2.4) mg/dL Total Bilirubin (0.2-1.0) mg/dL AST (15-37) U/L ALT (12-78) U/L Alkaline Phosphatase (46-116) IU/L Ammonia (11-32) umol/L C-Reactive Protein (<=0.9) mg/dL Total Protein (6.4-8.2) g/dL Albumin (3.4-5.0) g/dL TSH, Ultra Sensitive (0.358-3.740) mIU/mL Specimen Type Urincc Urine Color Yellow Urine Appearance Clear Urine pH 6.0 (5.0-9.0) Ur Specific [place] >= 1.030 (1.005-1.030) Urine Protein Negative (NEGATIVE) mg/dL Urine Glucose (UA) Negative (NEGATIVE) mg/dL Urine Ketones 15 H (NEGATIVE) mg/dL Urine Occult Blood Negative (NEGATIVE) Urine Nitrite Negative (NEGATIVE) Urine Bilirubin Negative (NEGATIVE) Urine Urobilinogen 0.2 (0.2-1.0) E.U./dL Ur Leukocyte Esterase Negative (NEGATIVE) Urine Opiates Screen Negative (NEGATIVE) Ur Buprenorphine Scrn Negative (NEGATIVE) Ur Oxycodone Screen Negative (NEGATIVE) Ur EDDP (Meth Metab) Negative (NEGATIVE) Acetaminophen (10.0-30.0) ug/mL Ur Barbiturates Screen Negative (NEGATIVE) Ur Tricyclics Screen Negative (NEGATIVE) Ur Amphetamine Screen Negative (NEGATIVE) U Methamphetamines Scrn Negative (NEGATIVE) Urine MDMA Screen Negative (NEGATIVE) U Benzodiazepines Scrn Negative (NEGATIVE) U Cocaine Metab Screen Negative (NEGATIVE) U Marijuana (THC) Screen Negative (NEGATIVE) Ethyl Alcohol (0.000-0.080) g/dL 09/17/21 09/17/21 09/17/21 Range/Units 17:40 17:40 17:40 WBC (4.0-10.2) K/uL RBC (3.77-5.09) M/uL Hgb (11.7-15.5) g/dL Hct (34.0-46.0) % MCV (84.0-98.0) fL MCH (28.2-33.3) pg MCHC (31.7-36.0) g/dL RDW (11.2-14.1) % Plt Count (150-350) K/uL Neut % (Auto) (45.0-80.0) % Lymph % (Auto) (10.0-50.0) % [place] % (Auto) (2.0-14.0) % Eos % (Auto) (0.0-5.0) % Baso % (Auto) (0.0-2.0) % Neut # (Auto) (1.40-7.00) K/uL Lymph # (Auto) (0.50-3.50) K/uL [place] # (Auto) (0.00-1.00) K/uL Eos # (Auto) (0.00-0.50) K/uL Baso # (Auto) (0.00-0.20) K/uL PT 9.3 L (9.5-12.0) SEC INR 0.9 APTT 24.1 L (24.5-32.8) SEC Sodium 145 (136-145) mmol/L Potassium 3.7 (3.5-5.1) mmol/L Chloride 107 (98-107) mmol/L Carbon Dioxide 27.1 (21.0-32.0) mmol/L Anion Gap 10.9 (7-15) meq/L BUN 12 (7-18) mg/dL Creatinine 0.65 (0.51-1.17) mg/dL Est Cr Clr Drug Dosing TNP Estimated GFR (MDRD) > 60 mL/min Glucose 96 (70-99) mg/dL Calcium 9.5 (8.5-10.1) mg/dL Phosphorus 4.1 (2.6-4.7) mg/dL Magnesium 2.3 (1.8-2.4) mg/dL Total Bilirubin 0.6 (0.2-1.0) mg/dL AST 17 (15-37) U/L ALT 31 (12-78) U/L Alkaline Phosphatase 111 (46-116) IU/L Ammonia (11-32) umol/L C-Reactive Protein 0.5 (<=0.9) mg/dL Total Protein 7.9 (6.4-8.2) g/dL Albumin 3.9 (3.4-5.0) g/dL TSH, Ultra Sensitive 1.215 (0.358-3.740) mIU/mL Specimen Type Urine Color Urine Appearance Urine pH (5.0-9.0) Ur Specific [place] (1.005-1.030) Urine Protein (NEGATIVE) mg/dL Urine Glucose (UA) (NEGATIVE) mg/dL Urine Ketones (NEGATIVE) mg/dL Urine Occult Blood (NEGATIVE) Urine Nitrite (NEGATIVE) Urine Bilirubin (NEGATIVE) Urine Urobilinogen (0.2-1.0) E.U./dL Ur Leukocyte Esterase (NEGATIVE) Urine Opiates Screen (NEGATIVE) Ur Buprenorphine Scrn (NEGATIVE) Ur Oxycodone Screen (NEGATIVE) Ur EDDP (Meth Metab) (NEGATIVE) Acetaminophen 0.0 L (10.0-30.0) ug/mL Ur Barbiturates Screen (NEGATIVE) Ur Tricyclics Screen (NEGATIVE) Ur Amphetamine Screen (NEGATIVE) U Methamphetamines Scrn (NEGATIVE) Urine MDMA Screen (NEGATIVE) U Benzodiazepines Scrn (NEGATIVE) U Cocaine Metab Screen (NEGATIVE) U Marijuana (THC) Screen (NEGATIVE) Ethyl Alcohol 0.000 (0.000-0.080) g/dL 06/26/21 Range/Units 17:40 WBC (4.0-10.2) K/uL RBC (3.77-5.09) M/uL Hgb (11.7-15.5) g/dL Hct (34.0-46.0) % MCV (84.0-98.0) fL MCH (28.2-33.3) pg MCHC (31.7-36.0) g/dL RDW (11.2-14.1) % Plt Count (150-350) K/uL Neut % (Auto) (45.0-80.0) % Lymph % (Auto) (10.0-50.0) % [place] % (Auto) (2.0-14.0) % Eos % (Auto) (0.0-5.0) % Baso % (Auto) (0.0-2.0) % Neut # (Auto) (1.40-7.00) K/uL Lymph # (Auto) (0.50-3.50) K/uL [place] # (Auto) (0.00-1.00) K/uL Eos # (Auto) (0.00-0.50) K/uL Baso # (Auto) (0.00-0.20) K/uL PT (9.5-12.0) SEC INR APTT (24.5-32.8) SEC Sodium (136-145) mmol/L Potassium (3.5-5.1) mmol/L Chloride (98-107) mmol/L Carbon Dioxide (21.0-32.0) mmol/L Anion Gap (7-15) meq/L BUN (7-18) mg/dL Creatinine (0.51-1.17) mg/dL Est Cr Clr Drug Dosing Estimated GFR (MDRD) mL/min Glucose (70-99) mg/dL Calcium (8.5-10.1) mg/dL Phosphorus (2.6-4.7) mg/dL Magnesium (1.8-2.4) mg/dL Total Bilirubin (0.2-1.0) mg/dL AST (15-37) U/L ALT (12-78) U/L Alkaline Phosphatase (46-116) IU/L Ammonia 6 L (11-32) umol/L C-Reactive Protein (<=0.9) mg/dL Total Protein (6.4-8.2) g/dL Albumin (3.4-5.0) g/dL TSH, Ultra Sensitive (0.358-3.740) mIU/mL Specimen Type Urine Color Urine Appearance Urine pH (5.0-9.0) Ur Specific [place] (1.005-1.030) Urine Protein (NEGATIVE) mg/dL Urine Glucose (UA) (NEGATIVE) mg/dL Urine Ketones (NEGATIVE) mg/dL Urine Occult Blood (NEGATIVE) Urine Nitrite (NEGATIVE) Urine Bilirubin (NEGATIVE) Urine Urobilinogen (0.2-1.0) E.U./dL Ur Leukocyte Esterase (NEGATIVE) Urine Opiates Screen (NEGATIVE) Ur Buprenorphine Scrn (NEGATIVE) Ur Oxycodone Screen (NEGATIVE) Ur EDDP (Meth Metab) (NEGATIVE) Acetaminophen (10.0-30.0) ug/mL Ur Barbiturates Screen (NEGATIVE) Ur Tricyclics Screen (NEGATIVE) Ur Amphetamine Screen (NEGATIVE) U Methamphetamines Scrn (NEGATIVE) Urine MDMA Screen (NEGATIVE) U Benzodiazepines Scrn (NEGATIVE) U Cocaine Metab Screen (NEGATIVE) U Marijuana (THC) Screen (NEGATIVE) Ethyl Alcohol (0.000-0.080) g/dL Meds: Medications Discontinued Medications Generic Name Dose Route Start Last Admin Trade Name Freq PRN Reason Stop Dose Admin Lisinopril 10 mg 06/26/21 18:55 06/26/21 19:14 Lisinopril 10 Mg Tab PO 06/26/21 18:56 10 mg ONETIME ONE Administration - Radiology Interpretation Free Text/Narrative:: CT scan of the head is negative for acute process. - Re-Assessments/Exams Free Text/Narrative Re-Assessment/Exam: 06/26/21 22:56 CT scan of the head was unremarkable. Lab work-up was unremarkable as far as a cause for her confusion/hallucinations. Apparent psychiatric etiology. Contacted [facility] and they will accept the patient. She is placed on a 24-hour hold and transferred to [facility]. Departure - Departure Time of Disposition: 23:00 Condition: Good - Discharge Information *PRESCRIPTION DRUG MONITORING PROGRAM REVIEWED*: Not Applicable *COPY OF PRESCRIPTION DRUG MONITORING REPORT IN PATIENT LIOR: Not Applicable Sepsis Event Note (ED) - Focused Exam Vital Signs: Vital Signs Temp Pulse Resp BP BP Pulse Ox 06/26/21 19:14 179/119 H 06/26/21 18:44 194/104 H 06/26/21 17:51 36.4 C 92 18 150/110 H 99 - Problem List & Annotations (1) Hallucinations SNOMED Code(s): 8505654 Code(s): R44.3 - HALLUCINATIONS, UNSPECIFIED Status: Acute Current Visit: Yes - Assessment/Plan Plan: Transfer to [facility].
[2021-06-26] MEDS: Lisinopril 10 MG Tab PO ONE (19:14)
== END 2021-06-27 01:36 ==
LOC: LL.ED 17:15
DX: R44.3 Hallucinations, unspecified (principal); Z88.1 Allergy status to other antibiotic agents; Z79.82 Long term (current) use of aspirin; R41.0 Disorientation, unspecified
CPT/HCPCS: 36415; 70450; 80053; 80143; 80305; 80307; 81003; 82140; 83735; 84100; 84443; 85025; 85610; 85730; 86140; 99284; 99285; A9270

== ENCOUNTER 2021-11-23 18:03 | Emergency (ER) | payer MEDICARE ==
[2021-11-23 18:53] LABS: ANION GAP 7.2 meq/L (7-15); CHLORIDE,CL 104 mmol/L (98-107); SODIUM,NA 136 mmol/L (136-145)
[2021-11-23 19:05] LABS: BARBITURATE SCREEN,URINE NEGATIVE (NEGATIVE); BENZODIAZEPINES SCREEN,URINE NEGATIVE (NEGATIVE); EDDP,URINE SCREEN NEGATIVE (NEGATIVE); TCA SCREEN,URINE NEGATIVE (NEGATIVE); THC SCREEN,URINE 50 NG/ML NEGATIVE (NEGATIVE)
[2021-11-23 19:06] LABS: BUPRENORPHINE SCREEN,URINE NEGATIVE (NEGATIVE)
[2021-11-23] MEDS: LORazepam 1 MG Tab PO ONE (20:36)
[2021-11-23] MEDS: Metoprolol Tartrate 25 MG Tab PO ONE (20:36)
[2021-11-23 20:40] VITALS: BP 179/96; PULSE 85
== END 2021-11-23 22:50 ==
LOC: LL.ED 18:03
DX: F29 Unspecified psychosis not due to a substance or known physiological condition (principal); I10 Essential (primary) hypertension; Z88.1 Allergy status to other antibiotic agents; Z79.82 Long term (current) use of aspirin; Z79.899 Other long term (current) drug therapy; Z20.822 Contact with and (suspected) exposure to COVID-19
CPT/HCPCS: 36415; 80053; 80143; 80305-QW; 80307; 81003; 85025; 87086; 87426; 99284; 99285; A9270-GY